=== PATIENT | female | born 1955 | race Caucasian/White ===

== ENCOUNTER 2022-08-19 07:07 | Day surgery (SDC) | payer OTHER ==
[~2022-08-19] VITALS: Ht 157.5 cm; Wt 87.5 kg
[~2022-08-19 07:07] MED LIST: CEFAZOLIN SOD 1 GM/ ISO 50 ML PREMIX IV ONE
[2022-08-19] MEDS ORDERED: NS 100 ML BAG IV ONE (10:02)
[2022-08-19] MEDS ORDERED: MIDAZOLAM HCL 5 MG/5 ML VIAL IVP ONE (10:02)
[2022-08-19] MEDS ORDERED: NS IRRIG SOLN 1000 ML IR ONE (10:02)
[2022-08-19] MEDS ORDERED: DESFLURANE 15 MIN GAS INH ONE (10:02)
[2022-08-19] MEDS ORDERED: PROPOFOL 200MG/ 20ML VIAL (DIPRIVAN) IV ONE (10:02)
[2022-08-19] MEDS ORDERED: CEFAZOLIN 2 GM IVPB PREMIX 50 ML IV ONE (10:02)
[2022-08-19] MEDS ORDERED: KETOROLAC TROMETHAMINE 30 MG VIAL IVP ONE (10:02)
[2022-08-19] MEDS ORDERED: SUGAMMADEX SODIUM 200 MG/2 ML VIAL IV ONE (10:02)
[2022-08-19] MEDS ORDERED: DEXAMETHASONE SOD PHOSPHATE 4 MG/ML VIAL IVP ONE (10:02)
[2022-08-19] MEDS ORDERED: LIDOCAINE 1% 10 MG/ML, 20 ML MDV INJ ONE (10:02)
[2022-08-19] MEDS ORDERED: fentaNYL CITRATE 250 MCG/5 ML AMP IV ONE (10:02)
[2022-08-19] MEDS ORDERED: LR 1,000 ML IV.SOLN IV ONE (10:02)
[2022-08-19] MEDS ORDERED: ACETAMINOPHEN I.V. 1000 MG 100 ML IV ONE (10:02)
[2022-08-19] MEDS ORDERED: ROCURONIUM BROMIDE 10 MG/ML (ZEMURON) IV ONE (10:02)
[2022-08-19] MEDS ORDERED: BUPIVACAINE /PF 0.25% 30 ML VIAL INJ ONE (10:02)
[2022-08-19] MEDS ORDERED: ONDANSETRON HCL 4 MG/2 ML VIAL IVP ONE (10:02)
[2022-08-19] MEDS ORDERED: LR 1,000 ML IV SCH (11:00)
[2022-08-19] MEDS ORDERED: HYDROmorphone 1 MG/ML INJ. CARTRIDGE IVP PRN ×3 (11:00→12:15)
[2022-08-19] MEDS ORDERED: METOCLOPRAMIDE HCL 10 MG/2 ML VIAL IVP PRN (11:00)
[2022-08-19] MEDS ORDERED: MEPERIDINE HCL/PF 25 MG/ML DISP.SYRIN IVP PRN (11:00)
[2022-08-19] MEDS ORDERED: LABETALOL 100 MG/ 20ML VIAL IVP PRN (11:00)
[2022-08-19] MEDS ORDERED: hydrALAZINE HCL 20 MG/ML VIAL IVP PRN (11:00)
[2022-08-19] MEDS ORDERED: BUPIVACAINE LIPOSOME/PF 266 MG/20 ML VIAL INFIL ONE (11:13)
[2022-08-19] MEDS ORDERED: ACETAMINOPHEN 325 MG TABLET PO PRN (12:15)
[2022-08-19] MEDS ORDERED: ONDANSETRON HCL 4 MG/2 ML VIAL IVP PRN (12:15)
[2022-08-19] MEDS ORDERED: HYDROcodone/ACETAMIN 5-325 MG TAB (NORCO/ VICODIN) PO PRN (12:15)
--- NOTE | 2022-08-19 13:50 | NUR ---
ADMISSION NOTE Received patient from OR via tommie, received report from RONNELL Callahan. Patient admitted with diagnosis of post op hernia repair. Patient oriented to hospital routine, call light, toileting and safety-patient verbalized understanding. Daughter at bedside.
[2022-08-19 14:00] VITALS: BP_SYST 118
[2022-08-19] MEDS: D5/0.45 NS 1,000 ML IV SCH (14:11)
[2022-08-19] MEDS: CEFAZOLIN 1 GM IVPB PREMIX 50 ML IV SCH (15:00)
--- NOTE | 2022-08-19 15:11 | NUR ---
ROUNDS Patient in bed resting with eyes closed, daughter at bedside. No sign of distress and patient states that her pain is 1-2 at this time. Abdominal binder in place. Breathing is nonlabored and even, patient is on 2L nasal cannula, oxygen saturation 97%. All needs met at this time and safety
[2022-08-19 17:02] VITALS: BP_SYST 121
[2022-08-19 19:00] VITALS: BP_SYST 128
--- NOTE | 2022-08-19 19:13 | NUR ---
CLOSING NOTE Patient in bed resting with daughter at bedside. Patient was able to ambulate to the restroom with assist. Patient states she has not been able to pass gas yet. Patient tolerating her liquid diet. States that her pain is manageable at this time. All needs met at this time and safety checks made. Endorsed to manufacturing supervisor 2nd shift nurse.
[2022-08-19 20:00] VITALS: BP_SYST 126
[2022-08-19] MEDS: FAMOTIDINE PF 20 MG/2 ML VIAL IVP SCH (22:06)
[2022-08-20] VITALS: BP_SYST 122
[2022-08-20] MEDS: CEFAZOLIN 1 GM IVPB PREMIX 50 ML IV SCH
[2022-08-20] MEDS: D5/0.45 NS 1,000 ML IV SCH ×3 (01:57→17:02)
[2022-08-20] MEDS ORDERED: ENOXAPARIN SODIUM 40 MG/0.4 ML SYRINGE SUBCUT SCH (09:00)
[2022-08-20 09:42] LABS: BASOPHILS % (AUTO) 0.2 % (0.0-2.0); HEMATOCRIT 35.6 % (36-48); LYMPHOCYTES # (AUTO) 1.2 K/uL (1.0-5.5); LYMPHOCYTES % (AUTO) 11.9 % (20.5-51.5); MEAN CORPUSCULAR VOLUME 86 fL (79.0-98.0); MONOCYTES # (AUTO) 0.5 K/uL (0.0-1.0); MONOCYTES % (AUTO) 5.3 % (1.7-9.3); NEUTROPHILS # (AUTO) 8.2 K/uL (1.8-7.7); NEUTROPHILS % (AUTO) 82.6 % (40.0-70.0); PLATELET COUNT (AUTO) 188 K/uL (130-430); RED BLOOD CELL COUNT(AUTO) 4.14 MIL/uL (4.2-6.2); RED CELL DISTRIBUTION WIDTH 13.3 % (9.0-15.0); WHITE BLOOD COUNT (AUTO) 9.9 K/uL (4.8-10.8)
[2022-08-20 09:55] LABS: ALBUMIN 2.8 g/dL (3.4-4.8); CALCIUM 8.3 mg/dL (8.4-11.0); CREATININE 0.62 mg/dL (0.55-1.30); TOTAL BILIRUBIN 0.4 mg/dL (0.0-1.0)
[2022-08-20] MEDS: FAMOTIDINE PF 20 MG/2 ML VIAL IVP SCH ×2 (10:10→22:38)
[2022-08-20 12:05] LABS: POTASSIUM 2.6 mmol/L (3.5-5.1)
[2022-08-20] MEDS ORDERED: KCL 10 mEq in 50 mL (PREMIX) 50 ML IV ONE (13:00)
[2022-08-20] MEDS ORDERED: KCL 40 mEq in 100 mL (PREMIX) 100 ML IV ONE (13:00)
[2022-08-20] MEDS ORDERED: POTASSIUM CHLORIDE 50 MEQ in NS 250 ML IV ONE (15:15)
[2022-08-20 22:29] VITALS: BP_SYST 136
[2022-08-20] MEDS: HYDROcodone/ACETAMIN 5-325 MG TAB (NORCO/ VICODIN) PO PRN ×2 (22:33→22:37)
== END 2022-08-20 23:10 | disposition home or self-care (01) ==
LOC: SDS 07:07 → SMU 07:08 → SDS 08-20 23:10
PROVIDERS: ATTEND Colon & Rectal Surgery
DX: K43.0 Incisional hernia with obstruction, without gangrene (principal); I10 Essential (primary) hypertension; E78.5 Hyperlipidemia, unspecified; E66.9 Obesity, unspecified; Z90.710 Acquired absence of both cervix and uterus; Z79.899 Other long term (current) drug therapy; Z20.822 Contact with and (suspected) exposure to COVID-19
CPT/HCPCS: 36415 ×2; 49561; 64488; 49568; 80053; 84132; 85025; 88302; 87426; U0003; J3490 ×4; C9290; J0690 ×2; J1100; J1885; J2001; J2250; J2405; J2704; J3010; J7120; C1781; J0131; J1650; J3480; J7050

== ENCOUNTER 2023-03-07 08:31 | Day surgery (SDC) | payer OTHER ==
[~2023-03-07] VITALS: Ht 157.5 cm; Wt 88.5 kg
[~2023-03-07 08:31] MED LIST changes: +ACETAMINOPHEN 500 MG TABLET PO ONE; -CEFAZOLIN SOD 1 GM/ ISO 50 ML PREMIX IV ONE; +CEFAZOLIN SOD 2 GM in D5W 50 ML IV ONE; +CELECOXIB 200 MG CAPSULE PO ONE; +DEXAMETHASONE SOD PHOSPHATE 10 MG/ML VIAL IVP ONE; +PANTOPRAZOLE SODIUM 40 MG TAB PO ONE; +PREGABALIN 75 MG CAPSULE (LYRICA) PO ONE; +TRANEXAMIC ACID 1,000 MG/10 ML VIAL IV ONE
[2023-03-07 09:11] LABS: BASOPHILS % (AUTO) 0.7 % (0.0-2.0); EOSINOPHILS # (AUTO) 0.1 K/uL (0.0-0.4); EOSINOPHILS % (AUTO) 1.8 % (0.0-4.0); HEMATOCRIT 41.2 % (36-48); HEMOGLOBIN 14.1 g/dL (12.0-16.0); LYMPHOCYTES # (AUTO) 1.9 K/uL (1.0-5.5); LYMPHOCYTES % (AUTO) 35.2 % (20.5-51.5); MEAN CORPUSCULAR HEMOGLOBIN 30 pg (27-31); MEAN CORPUSCULAR HGB CONC 34 % (32-36); MEAN CORPUSCULAR VOLUME 87 fL (79.0-98.0); MONOCYTES # (AUTO) 0.5 K/uL (0.0-1.0); MONOCYTES % (AUTO) 9.1 % (1.7-9.3); NEUTROPHILS # (AUTO) 2.8 K/uL (1.8-7.7); NEUTROPHILS % (AUTO) 53.2 % (40.0-70.0); PLATELET COUNT (AUTO) 197 K/uL (130-430); RED BLOOD CELL COUNT(AUTO) 4.76 MIL/uL (4.2-6.2); RED CELL DISTRIBUTION WIDTH 13.8 % (9.0-15.0); WHITE BLOOD COUNT (AUTO) 5.3 K/uL (4.8-10.8)
[2023-03-07 09:28] LABS: ALBUMIN 3.9 g/dL (3.4-4.8); CALCIUM 9.4 mg/dL (8.4-11.0); CREATININE 0.63 mg/dL (0.55-1.30); TOTAL BILIRUBIN 0.6 mg/dL (0.0-1.0)
[2023-03-07] MEDS ORDERED: CELECOXIB 200 MG CAPSULE ONE (09:33)
[2023-03-07] MEDS ORDERED: ACETAMINOPHEN 500 MG TABLET ONE (09:33)
[2023-03-07] MEDS ORDERED: PREGABALIN 75 MG CAPSULE (LYRICA) ONE (09:34)
[2023-03-07 09:35] LABS: PROTHROMBIN TIME 9.9 SECS (9.5-12.5)
[2023-03-07] MEDS ORDERED: NS IRRIG SOLN 1000 ML IR ONE (10:10)
[2023-03-07] MEDS ORDERED: MIDAZOLAM HCL 5 MG/5 ML VIAL ONE (10:10)
[2023-03-07] MEDS ORDERED: TRANEXAMIC ACID 1,000 MG/10 ML VIAL ONE (10:10)
[2023-03-07] MEDS ORDERED: BUPIVACAINE /PF 0.25% 30 ML VIAL INJ ONE (10:10)
[2023-03-07] MEDS ORDERED: KETOROLAC TROMETHAMINE 30 MG VIAL ONE (10:10)
[2023-03-07] MEDS ORDERED: WATER FOR IRRIGATION,STERILE 1,000 ML IRRIG.SOLN IR ONE (10:10)
[2023-03-07] MEDS ORDERED: ONDANSETRON HCL 4 MG/2 ML VIAL ONE (10:10)
[2023-03-07] MEDS ORDERED: fentaNYL CITRATE/PF 100 MCG/2 ML AMP ONE (10:10)
[2023-03-07] MEDS ORDERED: NS 1000 ML IV.SOLN IV ONE (10:10)
[2023-03-07] MEDS ORDERED: NS 500 ML IV.SOLN IV ONE (10:10)
[2023-03-07] MEDS ORDERED: DEXAMETHASONE SOD PHOSPHATE 4 MG/ML VIAL ONE (10:10)
[2023-03-07] MEDS ORDERED: LORATADINE 10 MG TABLET PO PRN (11:00)
[2023-03-07] MEDS ORDERED: traMADol HCL HCL 50 MG TABLET (ULTRAM) PO PRN (11:00)
[2023-03-07] MEDS ORDERED: oxyCODONE HCL 5 MG TABLET PO PRN ×2 (11:00)
[2023-03-07] MEDS ORDERED: ONDANSETRON HCL 4 MG/2 ML VIAL IVP PRN ×2 (11:45→12:15)
[2023-03-07] MEDS ORDERED: DICL75TA5 PO (11:49)
[2023-03-07] MEDS ORDERED: HYDR25TA4 PO (11:49)
[2023-03-07] MEDS ORDERED: CHOL100L MC (11:49)
[2023-03-07] MEDS ORDERED: LOSA50TA3 PO (11:49)
[2023-03-07] MEDS ORDERED: ALEN10TA25 PO (11:49)
[2023-03-07] MEDS ORDERED: KETOROLAC TROMETHAMINE 30 MG VIAL IVP PRN (12:15)
[2023-03-07] MEDS ORDERED: METOCLOPRAMIDE HCL 10 MG/2 ML VIAL IVP PRN ×2 (12:15→13:15)
[2023-03-07] MEDS ORDERED: ACETAMINOPHEN 500 MG TABLET PO ONE (12:15)
[2023-03-07] MEDS ORDERED: HYDROmorphone 1 MG/ML INJ. CARTRIDGE IVP PRN (12:15)
[2023-03-07] MEDS ORDERED: BISACODYL 10 MG/SUPPOSITORY RC PRN (13:15)
[2023-03-07] MEDS ORDERED: LACTULOSE 20 GM/30 ML UDC PO PRN (13:15)
[2023-03-07] MEDS ORDERED: DIPHENHYDRAMINE HCL 25 MG CAPSULE PO PRN (13:15)
[2023-03-07] MEDS: ACETAMINOPHEN 500 MG TABLET PO SCH ×2 (14:00→22:00)
[2023-03-07 15:30] VITALS: BP_SYST 110
[2023-03-07 15:32] VITALS: BP_SYST 110
[2023-03-07 16:07] VITALS: BP_SYST 110
[2023-03-07] MEDS: ceFAZolin SODIUM 2 GM in D5W 50 ML IV SCH (20:00)
[2023-03-07] MEDS ORDERED: VANCOMYCIN HCL 1,000 MG in NS 250 ML IV ONE (22:00)
[2023-03-07] MEDS: SENNOSIDES/DOCUSATE SODIUM 1 TAB TABLET(SENOKOT-S) PO SCH (22:08)
[2023-03-07 23:28] VITALS: BP_SYST 120
[2023-03-08] VITALS: BP_SYST 95
[2023-03-08] MEDS: ceFAZolin SODIUM 2 GM in D5W 50 ML IV SCH (04:00)
[2023-03-08 04:31] VITALS: BP_SYST 112
[2023-03-08] MEDS: ACETAMINOPHEN 500 MG TABLET PO SCH (06:15)
[2023-03-08] MEDS ORDERED: ASPIRIN 81 MG TAB.CHEW PO SCH (09:00)
[2023-03-08] MEDS: SENNOSIDES/DOCUSATE SODIUM 1 TAB TABLET(SENOKOT-S) PO SCH (09:26)
[2023-03-08] MEDS ORDERED: CELECOXIB 200 MG CAPSULE PO SCH (11:00)
[2023-03-08 11:25] VITALS: BP_SYST 105
[2023-03-08 12:52] VITALS: BP_SYST 105
== END 2023-03-08 13:30 | disposition home or self-care (01) ==
LOC: SDS 08:31 → SMU 08:33 → EDSTATUS 10:30 → SMU 14:22 → SDS 03-08 13:30
PROVIDERS: ATTEND Orthopaedic Surgery Sports Medicine
DX: M17.12 Unilateral primary osteoarthritis, left knee (principal); I10 Essential (primary) hypertension; E78.5 Hyperlipidemia, unspecified; E66.01 Morbid (severe) obesity due to excess calories; Z79.899 Other long term (current) drug therapy; Z79.01 Long term (current) use of anticoagulants; Z20.822 Contact with and (suspected) exposure to COVID-19
CPT/HCPCS: 87081; 27447; 97162; 80053; 85025; 85610; 85730; 36415; 73560; 97110; 97530; 97116; 88305; 88311; 87426; J3490 ×2; J0690; J1100; J1885; J2765; J2250; J2405; J3370; J3010; J7060; J7050; J7040; J7030; C1776 ×2; C1713 ×2